=== PATIENT | male | born 1995 | race Caucasian/White ===

== ENCOUNTER 2024-11-13 11:32 | Emergency (ER) | payer SELFPAY ==
[2024-11-13] MEDS ORDERED: HYDROcodone/Acetaminophen 5/325 mg Tablet ONE (14:28)
[2024-11-13] MEDS ORDERED: Ibuprofen 800 MG TAB ONE (15:14)
== END 2024-11-13 15:30 | disposition home or self-care (01) ==
LOC: ERS 11:32
DX: S97.122A Crushing injury of left lesser toe(s), initial encounter (principal); S90.122A Contusion of left lesser toe(s) without damage to nail, initial encounter; F17.210 Nicotine dependence, cigarettes, uncomplicated; W20.8XXA Other cause of strike by thrown, projected or falling object, initial encounter
CPT/HCPCS: 99283